=== PATIENT | male | born 1980 | race Caucasian/White ===

== ENCOUNTER 2016-07-23 18:32 | Emergency (ER) | payer MEDICAID ==
[~2016-07-23] VITALS: Ht 170.2 cm; Wt 79.5 kg
[~2016-07-23 18:32] MED LIST: CEPH-443 PO; CEPH500C PO; IBUP800T25 PO; NO NEW MEDS
[2016-07-23 18:36] VITALS: Ht 170.2 cm; Wt 79.5 kg
[2016-07-23] MEDS ORDERED: IBUP-1542 PO (20:15)
[2016-07-23 20:23] VITALS: BP 133/74; PULSE 57; RESP 17; TEMP 98.6
--- NOTE | 2016-07-23 22:08 | ERD ---
ER Documentation Chief Complaint Date/Time DATE: 07/23/16 TIME: 22:05 Chief Complaint swelling right neck on top of right ear HPI 36-year-old male patient with no significant past medical history presents to the ED complaining of a swelling noted under his right ear at the jaw line. States that this happened 1 month ago and now occurred again today. Reports that when it gets swollen, it hurts to chew and eat. Denies any dysphagia, odynophagia, fever, chills, ear pain, fever, chills, weakness, numbness and tingling. Denies any current swelling. ROS All systems reviewed and are negative except as per history of present illness. Medications Home Meds Active Scripts Ibuprofen* (Motrin*) 600 Mg Tab, 600 MG PO Q6, #30 TAB Prov:JOCE GOYAL PA-C 07/23/16 Cephalexin* (Keflex*) 500 Mg Capsule, 500 MG PO QID for 7 Days, CAP Prov:PATTY ESPINOZA PA-C 07/14/15 Ibuprofen* (Motrin*) 800 Mg Tab, 800 MG PO Q6H Y for PAIN AND OR ELEVATED TEMP, #14 TAB Prov:PATTY ESPINOZA PA-C 07/14/15 Reported Medications [No New Meds] No Conflict Check 08/24/11 Cephalexin* (Cephalexin*) 500 Mg Capsule, 500 MG PO QID 08/18/11 Allergies Allergies: Coded Allergies: No Known Allergy (Unverified , 07/14/15) PMhx/Soc History of Surgery: No Anesthesia Reaction: No Hx Neurological Disorder: No Hx Respiratory Disorders: No Hx Cardiac Disorders: No Hx Psychiatric Problems: No Hx Miscellaneous Medical Probl: No Hx Alcohol Use: Yes (12beers a week) Hx Substance Use: No Hx Tobacco Use: Yes (3 a day) Smoking Status: Current every day smoker Physical Exam Vitals Vital Signs Date Time Temp Pulse Resp B/P Pulse Ox O2 Delivery O2 Flow Rate FiO2 07/23/16 20:23 98.6 57 17 133/74 98 Room Air 07/23/16 18:36 98.4 88 20 134/67 98 Physical Exam Const: [id number], well-nourished. In no acute distress. Head: Atraumatic, normocephalic Eyes: Normal Conjunctiva without injection. No purulent discharge. PERRL. EOMI ENT: Normal external ear. Ear canal without erythema. Tympanic membrane pearly davis without effusion or bulging. Nasal canal clear with normal turbinates. Moist oropharynx without tonsillar exudates. Non-erythematous pharynx. Uvula midline. No drooling. No trismus. Neck: Full range of motion. No meningismus. No cervical lymphadenopathy. No lymphatic streaking. No swelling. Resp: Clear to auscultation bilaterally. No wheezing, rhonchi, rales, or crackles. No accessory muscle use. No retractions. Cardio: Regular rate and rhythm. No murmurs, rubs or gallops. Abd: Soft, non tender, non distended. Normal bowel sounds. No palpable masses. No rebound tenderness. No guarding. Skin: No petechiae or rashes Back: No midline tenderness. No CVA tenderness. Ext: No cyanosis, or edema. Neur: Awake and alert. Psych: Normal Mood and Affect Procedures/MDM This is a 36-year-old male patient with no significant past medical history presents to the ED complaining of a intermittent swelling under his right ear. Patient is afebrile nontoxic appearing. Patient has normal vital signs. This case was discussed with my supervising physician, Dr. Christiansen who stated that it could be a TMJ versus unspecified parotitis. Patient's physical exam include lungs which were clear to auscultation and a normal pulse oximetry. Bilateral ears pearly moscoso. No tenderness to palpation of tragus or mastoid. Low suspicion for mastoiditis, otitis externa, otitis media. Patient is speaking in full sentences. There is a low suspicion for pneumonia, epiglottitis, croup, sinusitis, peritonsillar abscess, hands foot mouth disease, scarlet fever, kawasaki disease, Itz's angina,strep pharyngitis, retropharyngeal abscess, meningitis, sepsis, acute abdomen or other emergent conditions. Discharge medications: Ibuprofen Follow up with primary care physician in 1-2 days. Instructed patient to return to the ED sooner for any worsening symptoms. Patient's questions were answered. Patient understood and agreed with discharge plan. Patient discharged stable. Departure Diagnosis: Primary Impression: Jaw pain Condition: Stable Patient Instructions: Helping Your Temporomandibular Joint (TMJ) Heal, Salivary Gland Swelling, Unk Cause, Tmj Syndrome Ref[facility]: [facility] Usted se carrizales hecho un examen mdico de control que le indica que no est en steven condicin que requiera tratamiento urgente en el Departamento de Emergencia. Un estudio ms profundo y el tratamiento de cooper condicin pueden esperar sin ningn riesgo hasta que usted sea atendida/o en el consultorio de cooper mdico o steven cl janice. Es responsabilidad suya arreglar steven lila para el seguimiento del cynthia. MANEJO DE CONDICIONES NO URGENTES EN EL FUTURO 1) Si usted tiene un mdico de atencin primaria: Usted debera llamar a cooper mdico de atencin primaria antes de venir al departamento de emergencia. Despus de las horas de consultorio, cooper doctor o cooper asociado/a est disponible por telfono. El mdico o enfermero de del en el servicio telefnico puede asesorarle por virgie medio para atender el problema, o cynthia contrario se puede programar steven lila. 2) Si usted no tiene un mdico de atencin primaria: Llame al mdico o clnica de referencia que aparece abajo shahid las horas de consultorio para hacer steven lila para que le vean. CLINICAS: [facility] [phone] [facility] [phone] [facility] [phone] [facility] [phone] [facility] [phone] [facility]. [phone] [address] [facility] () Usted se carrizales hecho un examen mdico de control que le indica que no est en steven condicin que requiera tratamiento urgente en el Departamento de Emergencia. Un estudio ms profundo y el tratamiento de cooper condicin pueden esperar sin ningn riesgo hasta que usted sea atendida/o en el consultorio de cooper mdico o steven cl janice. Es responsabilidad suya arreglar steven lila para el seguimiento del cynthia. MANEJO DE CONDICIONES NO URGENTES EN EL FUTURO 1) Si usted tiene un mdico de atencin primaria: Usted debera llamar a cooper mdico de atencin primaria antes de venir al departamento de emergencia. Despus de las horas de consultorio, cooper doctor o cooper asociado/a est disponible por telfono. El mdico o enfermero de del en el servicio telefnico puede asesorarle por virgie medio para atender el problema, o cynthia contrario se puede programar steven lila. 2) Si usted no tiene un mdico de atencin primaria: Llame al mdico o condado institucions de referencia que aparece abajo shahid las horas de consultorio para hacer steven lila para que le vean. SI USTED NO PUEDE PAGAR PARA AKASH UN MEDICO puede ir a: [facility] [address] [place] [address] [facility] [address] [place] [address] [facility] [address] [place] [address] [address] [facility] [address] [place], [place] [id number] Additional Instructions: Llame al doctor MAANA y tarik steven LILA PARA DENTRO DE 1-2 RICARDO.Dgale a la secretaria que nosotros le instruimos hacer esta lila.Avise o llame si cooper condicin se empeora antes de la lila. Regresa aqui si peor o no mejor. JOCE GOYAL PA-C July 23, 2016 22:08
== END 2016-07-23 20:23 | disposition home or self-care (01) ==
LOC: FTE 18:32
DX: R68.84 Jaw pain (principal); F17.210 Nicotine dependence, cigarettes, uncomplicated
CPT/HCPCS: 99283